=== PATIENT | female | born 1975 | race Caucasian/White ===

== ENCOUNTER 2016-04-21 17:44 | Emergency (ER) | payer MEDICAID ==
[~2016-04-21] VITALS: Ht 177.8 cm; Wt 52.0 kg
[~2016-04-21 17:44] MED LIST: CEPH-443 PO; FLUC150T17 PO; NITR-58 PO
[2016-04-21 17:49] VITALS: Ht 177.8 cm; Wt 52.0 kg
[2016-04-21] MEDS ORDERED: FAMOTIDINE 20 MG INJ IV STA (18:07)
[2016-04-21] MEDS ORDERED: SOD CHLORIDE 0.9% 1,000 ML IV STA ×2 (18:07→19:25)
[2016-04-21] MEDS ORDERED: morphine 4 MG/ML VIAL IV STA (18:07)
[2016-04-21] MEDS ORDERED: ONDANSETRON 4 MG INJ IV STA (18:07)
[2016-04-21 18:32] LABS: BASOPHILS % 0.1 % (0.0-2.0); EOSINOPHILS # 0.1 10^3/ul (0.0-0.5); EOSINOPHILS % 0.3 % (0.0-7.0); HEMATOCRIT 45.2 % (37.0-47.0); LYMPHOCYTES % 6.2 % (15.0-51.0); MEAN CORPUSCULAR HEMOGLOBIN 28.4 pg (29.0-33.0); MEAN CORPUSCULAR HGB CONC 33.1 g/dl (32.0-37.0); MEAN CORPUSCULAR VOLUME 85.8 fl (82.0-101.0); MONOCYTES % 6.4 % (0.0-11.0); NEUTROPHIL # 14.2 10^3/ul (1.6-7.5); PLATELET COUNT 266 10^3/UL (140-440); RED BLOOD COUNT 5.27 10^6/ul (4.20-5.40); RED CELL DISTRIBUTION WIDTH 13.8 % (11.5-14.5); UNCORRECTED WBC 16.4 10^3/ul (4.8-10.8); WHITE BLOOD COUNT 16.4 10^3/ul (4.8-10.8)
[2016-04-21 18:37] LABS: CONDITION 1
--- NOTE | 2016-04-21 18:39 | RADRPT ---
PROCEDURE: XR Chest. CLINICAL INDICATION: Chest pain TECHNIQUE: Single frontal view of the chest. COMPARISON: No priorchest radiograph. FINDINGS: The lungs are clear. No pleural effusion or pneumothorax. The cardiomediastinal silhouette is unremarkable. No acute osseous abnormalities. IMPRESSION: No acute abnormalities. RPTAT: AADD .Krishna Muhammad MD, MD Date Time Electronically viewed and signed by .Krishna Muhammad MD, on 04/21/2016 18:38 .B/
[2016-04-21 19:03] LABS: ALBUMIN 4.9 g/dl (3.3-4.9); POTASSIUM 4.2 mmol/L (3.5-5.1)
[2016-04-21 19:05] LABS: BILIRUBIN,INDIRECT 0.3 mg/dl (0-1.1); BILIRUBIN,TOTAL 0.3 mg/dl (0.2-1.3); CREATININE 0.51 mg/dl (0.44-1.00)
[2016-04-21 19:06] LABS: ALBUMIN/GLOBULIN RATIO 1.19; CALCIUM 9.9 mg/dl (8.4-10.2)
[2016-04-21 20:19] LABS: ADD UMIC YES; URINE BILIRUBIN (Dip) NEGATIVE (NEGATIVE); URINE BLOOD (Dip) TRACE (NEGATIVE); URINE COLOR LT. YELLOW (YELLOW); URINE GLUCOSE (Dip) NEGATIVE (NEGATIVE); URINE KETONES (Dip) 40 (NEGATIVE); URINE LEUKOCYTE ESTERASE (Dip) NEGATIVE (NEGATIVE); URINE NITRITE (Dip) NEGATIVE (NEGATIVE); URINE TOTAL PROTEIN (Dip) NEGATIVE (NEGATIVE); URINE UROBILINOGEN (Dip) 0.2 E.U./dL (0.1-1.0)
--- NOTE | 2016-04-21 20:19 | RADRPT ---
PROCEDURE: CT Abdomen and Pelvis without contrast. CLINICAL INDICATION: Abdominal pain, history of ruptured appendix. TECHNIQUE: A CT scan of the abdomen and pelvis was performed without intravenous contrast. Sheehan l and sagittal reformatted images were generated. Images were reviewed on a high-resolution PACS wor kstation. CTDIvol: 7.31 mGy. DLP: 342.46 mGy-cm. COMPARISON: None. FINDINGS: The lung bases are clear. Evaluation of the abdominal and pelvic viscera is limited by the lack of oral and intravenous contra st. The liver is unremarkable. The gallbladder is normal in appearance. The common bile duct is not dila ariel. The spleen is not enlarged. No pancreatic lesion is identified and there is no pancreatic ducta l dilatation. The adrenal glands are unremarkable. The kidneys are normal in size. There is no perinephric fat stranding. No hydronephrosis is seen. No urinary stone is identified. The small and large bowel are normal in caliber. There is no bowel wall thickening. The appendix is not identified. The urinary bladder is unremarkable. The pelvic organs are within normal limits. No lymphadenopathy is identified. There is no ascites. No pneumoperitoneum is seen. There are no art erial calcifications. No suspicious osseous lesion is idenitified. IMPRESSION: 1. No inflammation, mass, or lymphadenopathy. 2. The appendix is not identified. 3. No obstructive uropathy or urinary stone. RPTAT: HTAR .Haile Osuna MD, Date Time Electronically viewed and signed by .Haile Osuna MD, MD on 04/21/2016 20:18 .R/
[2016-04-21 20:34] LABS: SQUAMOUS EPITHELIAL CELL,UR MODERATE
[2016-04-21 20:35] LABS: BACTERIA,URINE MODERATE; URINE RBCS 0-2 /HPF (0)
--- NOTE | 2016-04-21 20:52 | ERD ---
ER Documentation Chief Complaint Date/Time DATE: 04/21/16 TIME: 20:50 Chief Complaint Pt with SOB, AP, fell and loss consciousness. HPI This is a 40-year-old female presents to the emergency room for evaluation of nausea, vomiting, and feeling weak. The patient states that she almost fainted after vomiting and states that did not lose consciousness but felt like her vision was going black. Patient does state that she thinks she ate bad food in the morning. She does say she is also had one episode of diarrhea. She states that her pain is a crampy pain and localizes to the general portion of the abdomen. ROS All systems reviewed and are negative except as per history of present illness. Medications Home Meds Discontinued Scripts Cephalexin* (Keflex*) 500 Mg Capsule, 500 MG PO QID for 7 Days, CAP Prov:LINDA BHANDARI PA-C 12/24/15 Fluconazole* (Diflucan*) 150 Mg Tablet, 200 MG PO BID, #28 TAB Prov:HOWARD NINA PA-C 12/22/15 Nitrofurantoin Monohyd Macrocr* (Macrobid*) 100 Mg Capsr, 100 MG PO BID for 7 Days, CAP Prov:HOWARD NINA PA-C 12/22/15 Allergies Allergies: Coded Allergies: codeine (Verified Allergy, Mild, CHILLS, NAUSEA, 04/21/16) dimenhydrinate (Unverified Allergy, Unknown, 04/21/16) perflutren (Unverified Allergy, Unknown, 04/21/16) PMhx/Soc History of Surgery: Yes (APPY) Anesthesia Reaction: No Hx Neurological Disorder: No Hx Respiratory Disorders: No Hx Cardiac Disorders: No Hx Psychiatric Problems: No Hx Miscellaneous Medical Probl: No Hx Alcohol Use: No Hx Substance Use: No Hx Tobacco Use: No Smoking Status: Never smoker Physical Exam Vitals Vital Signs Date Time Temp Pulse Resp B/P Pulse Ox O2 Delivery O2 Flow Rate FiO2 04/21/16 17:49 97.8 157 18 141/82 100 Physical Exam INITIAL VITAL SIGNS: Reviewed by me GENERAL: The patient is well developed and appropriate for usual state of health in no apparent distress HEENT: Dry mucous membranes pupils equal, round, and reactive to light. EOMI. There is no scleral icterus. NECK: C-spine is soft and supple, there is no meningismus. There is no cervical lymphadenopathy. LUNGS: Clear to auscultation bilaterally. There are no rales, wheezes or rhonchi. HEART: Regular rate and rhythm, no murmurs, clicks, rubs or gallops. ABDOMEN: Epigastric tenderness to palpation, negative [place] sign, negative McBurney point tenderness, otherwise soft, non-tender, non-distended. There are bowel sounds in all four quadrants. No rebound or guarding. EXTREMITIES: There is no peripheral cyanosis or edema. No focal swelling or erythema. NEUROLOGICAL: The patient moves all four extremities with 5/5 strength. Cranial nerves II - XII are intact. Normal gait. Alert and oriented SKIN: There is no apparent rash or petechiae. HEME/LYMPHATIC: There is no evidence of excessive bruising or lymphedema. PSYCHIATRIC: The patient does not appear anxious or depressed. Result Diagram: 04/21/16181104/21/161809 Results 24 hrs Laboratory Tests Test 04/21/16 18:10 04/21/16 18:12 04/21/16 19:38 Alanine Aminotransferase (ALT/SGPT) 42IU/L Albumin 4.9g/dl Albumin/Globulin Ratio 1.19 Alkaline Phosphatase 111IU/L Anion Gap 23 Aspartate Amino Transf (AST/SGOT) 45IU/L Blood Urea Nitrogen 10mg/dl Calcium Level 9.9mg/dl Carbon Dioxide Level 23mmol/L Chloride Level 102mmol/L Creatinine 0.51mg/dl Direct Bilirubin 0.00mg/dl Globulin 4.10g/dl Glucose Level 107mg/dl Indirect Bilirubin 0.3mg/dl Lipase 111U/L Potassium Level 4.2mmol/L Sodium Level 144mmol/L Total Bilirubin 0.3mg/dl Total Protein 9.0g/dl Basophils # 0.010^3/ul Basophils % 0.1% Blood Morphology Comment Eosinophils # 0.110^3/ul Eosinophils % 0.3% Hematocrit 45.2% Hemoglobin 15.0g/dl Lymphocytes # 1.010^3/ul Lymphocytes % 6.2% Mean Corpuscular Hemoglobin 28.4pg Mean Corpuscular Hemoglobin Concent 33.1g/dl Mean Corpuscular Volume 85.8fl Mean Platelet Volume 10.0fl Monocytes # 1.010^3/ul Monocytes % 6.4% Neutrophils # 14.210^3/ul Neutrophils % 87.0% Nucleated Red Blood Cells # 0.010^3/ul Nucleated Red Blood Cells % 0.0/100WBC Platelet Count 11553^3/UL Red Blood Count 5.2710^6/ul Red Cell Distribution Width 13.8% Serum HCG, Qualitative NEGATIVE White Blood Count 16.410^3/ul Urine Bacteria MODERATE Urine Bilirubin NEGATIVE Urine Clarity CLEAR Urine Color LT. YELLOW Urine Glucose NEGATIVE% Urine Hemoglobin TRACE Urine Ketones 40 Urine Leukocyte Esterase NEGATIVE Urine Microscopic RBC 0-2/HPF Urine Microscopic WBC 0-2/HPF Urine Nitrite NEGATIVE Urine Specific [place] >=1.030 Urine Squamous Epithelial Cells MODERATE Urine Total Protein NEGATIVE Urine Urobilinogen 0.2 E.U./dL Urine pH 5.5 Current Medications Medications (Trade) Dose Ordered Sig/Dominic Route PRN Reason Start Time Stop Time Status Last Admin Dose Admin Sodium Chloride (NS) 1,000 ml @ 1,000 mls/hr Q1H STAT IV 04/21/16 18:07 04/21/16 19:06 DC 04/21/16 18:37 Morphine Sulfate (morphine) 4 mg ONCE STAT IV 04/21/16 18:07 04/21/16 18:08 DC 04/21/16 18:37 Ondansetron HCl (Zofran Inj) 4 mg ONCE STAT IV 04/21/16 18:07 04/21/16 18:08 DC 04/21/16 18:37 Famotidine 20 mg 20 mg ONCE STAT IV 04/21/16 18:07 04/21/16 18:08 DC 04/21/16 18:37 Sodium Chloride (NS) 1,000 ml @ 1,000 mls/hr Q1H STAT IV 04/21/16 19:25 04/21/16 20:24 DC 04/21/16 20:40 Procedures/MDM CT abdomen pelvis without: 1. No inflammation, mass, or lymphadenopathy. 2. The appendix is not identified. 3. No obstructive uropathy or urinary stone. Chest X-ray 1V Interpreted by me: Soft Tissue: No acute abnormalities Bones: No acute abnormalities Mediastinum/Cardiac Silhouette/Lungs: [No acute abnormalities] This is a 40-year-old female presents to the ER for evaluation of abdominal cramping, nausea vomiting. This patient did have some tenderness to palpation on my examination. A CAT scan does not reveal any signs of acute cholecystitis , and the appendix was not visualized on CAT scan however this patient has no pain in the right lower quadrant. The patient was given 2 L of fluid, morphine , Zofran. Upon my reevaluation she states she is feeling much better. She is tolerating p.o. challenge at this time. She is in no acute distress and will be discharged home with a prescription for Zantac, and Zofran. Differential diagnoses entertained was broad with potential high acuity. Patient has been evaluated for appendicitis, cholecystitis, and other high risk medical and surgical causes of abdominal pain. Ultimately the patient's evaluation is nondiagnostic. Based on the patient's lack of risk factors, as well as the patient's clinical, laboratory, and imaging data, the patient appears to be low risk for these high risk causes of abdominal pain. Departure Diagnosis: Primary Impression: Nausea & vomiting Additional Impression: Mild dehydration Condition: Stable CLARIBEL LOPEZ DO Apr 21, 2016 20:52
[2016-04-21] MEDS ORDERED: ONDA4TAB8 PO (20:53)
[2016-04-21] MEDS ORDERED: RANI150T9 PO (20:53)
[2016-04-21] MEDS ORDERED: FAMOTIDINE 20 MG TAB PO ONE (21:00)
[2016-04-21] MEDS ORDERED: ONDANSETRON (ODT) 4 MG TAB ODT ONE (21:04)
[2016-04-21] MEDS ORDERED: ONDANSETRON (ODT) 4 MG TAB ODT STA (21:04)
[2016-04-21 21:19] VITALS: BP 97/56; PULSE 84; RESP 17; TEMP 98.6
== END 2016-04-21 21:21 | disposition home or self-care (01) ==
LOC: E/R 17:44
DX: R11.2 Nausea with vomiting, unspecified (principal); E86.0 Dehydration
CPT/HCPCS: 36415; 71010; 74176; 80053; 81001; 83690; 84703; 85025; 96374; 96375; J2270; J2405; J7030; Z7502; Z7610; 81003

== ENCOUNTER 2017-03-07 09:19 | Emergency (ER) | payer MEDICAID, OTHER ==
[~2017-03-07] VITALS: Ht 154.9 cm; Wt 55.2 kg
[~2017-03-07 09:19] MED LIST changes: -CEPH-443 PO; -FLUC150T17 PO; -NITR-58 PO; +ONDA4TAB8 PO; +RANI150T9 PO
[2017-03-07 09:23] VITALS: Ht 154.9 cm; Wt 55.2 kg
[2017-03-07] MEDS ORDERED: KETOROLAC 60 MG INJ IM STA (09:41)
[2017-03-07 09:52] LABS: URINE BLOOD (Dip) POC 2+ (NEGATIVE)
--- NOTE | 2017-03-07 10:09 | ERD ---
ER Documentation Chief Complaint Chief Complaint CHIN X3 WKS W/NAUSEA , SOB, DENIES COUGH, SPEAKING FULL SENTENCES HPI 54-year-old female complaining of sore throat, cough, and bilateral ear ache 5 days. Patient states that the cough is productive, with "green phlegm". Patient has nasal congestion. Denies shortness of breath. Denies fever or chills. Denies abdominal pain, vomiting, diarrhea. Denies headache or neck pain. ROS All systems reviewed and are negative except as per history of present illness. Medications Home Meds Active Scripts Ranitidine Hcl* (Zantac*) 150 Mg Tablet, 150 MG PO BID Y for EPIGASTRIC PAIN, # 10 TAB Prov:CLARIBEL LOPEZ DO 04/21/16 Ondansetron Hcl* (Zofran*) 4 Mg Tablet, 4 MG PO Q8H Y for NAUSEA AND/OR VOMITING , #10 TAB Prov:CLARIBEL LOPEZ DO 04/21/16 Allergies Allergies: Coded Allergies: codeine (Verified Allergy, Mild, CHILLS, NAUSEA, 04/21/16) dimenhydrinate (Unverified Allergy, Unknown, 04/21/16) perflutren (Unverified Allergy, Unknown, 04/21/16) PMhx/Soc History of Surgery: Yes (APPY) Anesthesia Reaction: No Hx Neurological Disorder: No Hx Respiratory Disorders: No Hx Cardiac Disorders: No Hx Psychiatric Problems: No Hx Miscellaneous Medical Probl: No Hx Alcohol Use: No Hx Substance Use: No Hx Tobacco Use: No Smoking Status: Never smoker Physical Exam Vitals Vital Signs Date Time Temp Pulse Resp B/P Pulse Ox O2 Delivery O2 Flow Rate FiO2 03/07/17 09:23 98.6 105 20 147/91 100 Physical Exam General: Well-developed, well-nourished, conscious and coherent, in no distress Skin: Warm and dry without rash, good texture and turgor Head: Normocephalic without evidence of trauma Eyes: Sclera and conjunctivae normal; pupils equal, round, and reactive to light; extraocular movements are intact Ears: Canals are patent. Tympanic membranes are clear Nose/Face: Nasal mucosa erythematous and swollen. Mouth/throat: Mucous membranes are moist. Posterior pharynx mildly erythematous without exudates Neck: Supple without meningismus or adenopathy. Carotids are equal. Trachea midline. No bruits or JVD Chest: Normal AP diameter. Good expansion without retractions. Nontender. Lungs are clear to auscultate bilaterally with good tidal volume Heart: Regular rate and rhythm. No murmur, rub, or gallops heard Abdomen: Soft and nontender without masses, guarding, or rebound. Bowel sounds are active. No hepatosplenomegaly Extremities: Full range of motion. Good strength bilaterally. No clubbing, cyanosis, or edema. Peripheral pulses are intact. Sensation intact Neuro: Alert and oriented 4, GCS 15. Cranial nerves grossly intact. Motor and sensory exams nonfocal. Moves all extremities. Speech clear. Gait normal Results 24 hrs Laboratory Tests Test 03/07/17 09:50 Bedside Urine pH (LAB) 6.5 Bedside Urine Protein (LAB) Negative Bedside Urine Glucose (UA) Negative Bedside Urine Ketones (LAB) Negative Bedside Urine Blood 2+ Bedside Urine Nitrite (LAB) Negative Bedside Urine Leukocyte Esterase (L Trace Current Medications Medications (Trade) Dose Ordered Sig/Dominic Route PRN Reason Start Time Stop Time Status Last Admin Dose Admin Ketorolac Tromethamine (Toradol) 60 mg ONCE STAT IM 03/07/17 09:41 03/07/17 09:43 DC 03/07/17 10:00 Procedures/MDM Patient is afebrile, in no respiratory distress. Lungs are clear to auscultate. I doubt that patient has pneumonia or bronchitis. Likely patient's symptoms are result of viral upper respiratory infection. Patient appears well, stable for discharge and outpatient management. Medical decision making shared with patient and family. Education provided to patient and family. Patient and family expressed understanding of the plan. Medications on discharge: Ibuprofen, saline nasal spray, Robitussin. Follow-up: Primary care provider in 2-3 days or return to ED if worse. Disclaimer: Inadvertent spelling and grammatical errors are likely due to EHR/ dictation software use and do not reflect on the overall quality of patient care. Also, please note that the electronic time recorded on this note does not necessarily reflect the actual time of the patient encounter. SUKUMAR BLANCO NP Mar 07, 2017 10:09
--- NOTE | 2017-03-07 10:19 | RADRPT ---
PROCEDURE: CT Brain without contrast. CLINICAL INDICATION: Headaches. TECHNIQUE: A CT of the brain was performed on multidetector high-resolution CT scanner utilizing a xial sections from the skull base through the vertex without contrast. One or more of the following dose reduction techniques were used: Automated exposure control, Adjustment of the mA and/or kV acc ording to patient size, and/or use of iterative reconstruction technique. DICOM images are available . DOSE: CTDI = 45 mGy and the DLP = 720 mGy-cm. COMPARISON: None available FINDINGS: No acute intracranial hemorrhage, significant mass effect or midline shift. The ramires-white different iation is grossly preserved. Prominence of the cortical sulci and ventricles are related to mild cerebral volume loss. Bilateral ethmoid sinus mucosal thickening. IMPRESSION: No acute intracranial findings. Mild volume loss. Bilateral ethmoid sinus mucosal thickening. RPTAT: AA .Brenden Park MD, MD Date Time Electronically viewed and signed by .Brenden Park MD, MD on 03/07/2017 10:18 .T/
--- NOTE | 2017-03-07 10:27 | ERD ---
ER Documentation Chief Complaint Chief Complaint CHIN X3 WKS W/NAUSEA , SOB, DENIES COUGH, SPEAKING FULL SENTENCES HPI 41-year-old female complaining of headache 3 weeks. Patient stated that the headache has been constant at "level 5", but sometimes she will get waves has extreme pain. Described pain as a tight squeeze her head. Pain is not usually on the occipital region. Patient stated that she cannot open her right eye this morning because of pain. She reports occasional blurriness. She tried to take Motrin for pain, but it gave her diarrhea. Patient reports nausea but denies vomiting. Denies photophobia. Denies neck pain. Denies recent head injuries. Patient stated that she had headaches in the past. ROS All systems reviewed and are negative except as per history of present illness. Medications Home Meds Active Scripts Aspirin/Acetaminophen/Caffeine (Excedrin Extra Strength Caplet) 1 Each Tablet, 1 EACH PO Q6 Y for HEADACHE, #30 TAB Prov:SUKUMAR BLANCO. [employer] 03/07/17 Sodium Chloride (Saline Nasal Mist) 126 Ml Mist, 2 SPRAY NASAL Q2H Y for NASAL CONGESTION, #1 BOTTLE Prov:SUKUMAR BLANCO. [employer] 03/07/17 Ranitidine Hcl* (Zantac*) 150 Mg Tablet, 150 MG PO BID Y for EPIGASTRIC PAIN, # 10 TAB Prov:CLARIBEL LOPEZ DO 04/21/16 Ondansetron Hcl* (Zofran*) 4 Mg Tablet, 4 MG PO Q8H Y for NAUSEA AND/OR VOMITING , #10 TAB Prov:CLARIBEL LOPEZ DO 04/21/16 Allergies Allergies: Coded Allergies: codeine (Verified Allergy, Mild, CHILLS, NAUSEA, 04/21/16) dimenhydrinate (Unverified Allergy, Unknown, 04/21/16) perflutren (Unverified Allergy, Unknown, 04/21/16) PMhx/Soc History of Surgery: Yes (APPY) Anesthesia Reaction: No Hx Neurological Disorder: No Hx Respiratory Disorders: No Hx Cardiac Disorders: No Hx Psychiatric Problems: No Hx Miscellaneous Medical Probl: No Hx Alcohol Use: No Hx Substance Use: No Hx Tobacco Use: No Smoking Status: Never smoker Physical Exam Vitals Vital Signs Date Time Temp Pulse Resp B/P Pulse Ox O2 Delivery O2 Flow Rate FiO2 03/07/17 09:23 98.6 105 20 147/91 100 Physical Exam General: Well-developed, well-nourished, conscious and coherent, in no distress Skin: Warm and dry without rash, good texture and turgor Head: Normocephalic without evidence of trauma Eyes: Sclera and conjunctivae normal; pupils equal, round, and reactive to light; extraocular movements are intact Ears: Canals are patent. Tympanic membranes are clear Nose/Face: Without rhinorrhea. Sinuses not tender on percussion. Mouth/throat: Mucous membranes are moist. Posterior pharynx clear without erythema or exudates Neck: Supple without meningismus or adenopathy. Carotids are equal. Trachea midline. No bruits or JVD. Bilateral sternocleidomastoid and upper trapezius muscle tightness noted. Chest: Normal AP diameter. Good expansion without retractions. Nontender. Lungs are clear to auscultate bilaterally with good tidal volume Heart: Regular rate and rhythm. No murmur, rub, or gallops heard Abdomen: Soft and nontender without masses, guarding, or rebound. Bowel sounds are active. No hepatosplenomegaly Extremities: Full range of motion. Good strength bilaterally. No clubbing, cyanosis, or edema. Peripheral pulses are intact. Sensation intact Neuro: Alert and oriented 4; GCS 15. Cranial nerves II - XII intact. Motor sensory exam nonfocal. Moves all extremities. Deep tendon reflexes 2+ in all extremities. Speech clear. No pronator drift. Gait steady. Results 24 hrs Laboratory Tests Test 03/07/17 09:50 Bedside Urine pH (LAB) 6.5 Bedside Urine Protein (LAB) Negative Bedside Urine Glucose (UA) Negative Bedside Urine Ketones (LAB) Negative Bedside Urine Blood 2+ Bedside Urine Nitrite (LAB) Negative Bedside Urine Leukocyte Esterase (L Trace Current Medications Medications (Trade) Dose Ordered Sig/Dominic Route PRN Reason Start Time Stop Time Status Last Admin Dose Admin Ketorolac Tromethamine (Toradol) 60 mg ONCE STAT IM 03/07/17 09:41 03/07/17 09:43 DC 03/07/17 10:00 PROCEDURE: CT Brain without contrast. CLINICAL INDICATION: Headaches. TECHNIQUE: A CT of the brain was performed on multidetector high-resolution CT scanner utilizing axial sections from the skull base through the vertex without contrast. One or more of the following dose reduction techniques were used: Automated exposure control, Adjustment of the mA and/or kV according to patient size, and/or use of iterative reconstruction technique. DICOM images are available. DOSE: CTDI = 45 mGy and the DLP = 720 mGy-cm. COMPARISON: None available FINDINGS: No acute intracranial hemorrhage, significant mass effect or midline shift. The ramires-white differentiation is grossly preserved. Prominence of the cortical sulci and ventricles are related to mild cerebral volume loss. Bilateral ethmoid sinus mucosal thickening. IMPRESSION: No acute intracranial findings. Mild volume loss. Bilateral ethmoid sinus mucosal thickening. RPTAT: AA .Brenden Park MD, MD Date Time Electronically viewed and signed by .Brenden Park MD, MD on 03/07/2017 10:18 .T/ CC: SUKUMAR BLANCO. [employer] Procedures/MDM 41-year-old female presented ED with headache 3 weeks. Toradol given to the patient in the ED for pain, patient reports improvement headache after Toradol. Patient has history of frequent urinary tract infection. UA was obtained, no sign of a UTI noted on UA. CT head without IV contrast was also negative for acute intracranial hemorrhage , or brain lesions. Thickened ethmoid sinus mucosa is noted. Differentials include but not limited to migraine, cluster headache, tension headache, sinus or dental infection, TMJ syndrome, pseudotumor cerebri, meningitis, encephalitis, giant cell arteritis, glaucoma, subarachnoid hemorrhage, subdural or epidural hematoma, intracranial bleeding or tumor. Likely patient has a combination of headache and sinus headache. Patient appears well, stable for discharge and outpatient management. Medical decision making shared with patient and family. Education provided to patient and family. Patient and family expressed understanding of the plan. Medications on discharge: Saline nasal spray, Excedrin. Follow-up: Primary care provider in 2-3 days or return to ED if worse. Disclaimer: Inadvertent spelling and grammatical errors are likely due to EHR/ dictation software use and do not reflect on the overall quality of patient care. Also, please note that the electronic time recorded on this note does not necessarily reflect the actual time of the patient encounter. Departure Diagnosis: Primary Impression: Headache Condition: Stable SUKUMAR BLANCO NP Mar 07, 2017 10:27
[2017-03-07] MEDS ORDERED: SODI126M NASAL (10:28)
[2017-03-07] MEDS ORDERED: ASPI-826 PO (10:28)
== END 2017-03-07 11:14 | disposition home or self-care (01) ==
LOC: FTE 09:19
DX: R51 Headache (principal)
CPT/HCPCS: 70450; 81003; 96372; 99285; J1885